=== PATIENT | male | born 1995 | race Hispanic/Latino ===

== ENCOUNTER 2016-09-11 20:09 | Emergency (ER) | payer SELFPAY ==
[2016-09-11 20:41] VITALS: BP 114/75; PULSE 105; RESP 20; O2SAT 97
--- NOTE | 2016-09-11 21:24 | ED.REPORT ---
HPI-General Illness Date of Service Sep 11, 2016 ED Provider: Dr. Harvinder Bernardo M.D. A 21 year old male presents to the ED via Police with alcohol intoxication of unknown onset. The patient arrives with a breathalyzer of .280 and climbing. He needs to be cleared for detox. History is difficult to obtain due to patient's intoxication. Nursing Notes Stated Complaint: DETOX Chief Complaint: Substance Abuse Nursing Notes Reviewed: Yes Allergies: Coded Allergies: No Known Allergies (Unverified , 09/11/16) General Time Seen by MD: 21:23 Chief Complaint Other (Alcohol intoxication) Unable to Obtain Hx: Patient condition, Intoxicated Arrived By: Police Sudden in Onset?: Yes Onset Occurred: Onset unknown Context of Onset: EtOH use Symptom Duration: Since onset Severity: Current: No pain currently Severity: Maximum: No pain Recent Healthcare: No recent doctor visit Past Medical History Past Medical History None reported Past Surgical History None reported Smoking History Unknown if Ever Smoker Ambulatory Status Independent Review of Systems Unable to Obtain ROS Patient condition, Intoxicated Physical Exam Vital Signs Vital Signs Date Time Temp Pulse Resp B/P Pulse Ox O2 Delivery O2 Flow Rate FiO2 09/11/16 20:41 36.8 105 20 114/75 97 Room Air Initial VS: Reviewed Head / Eyes: Atraumatic, Normocephalic ENT: Conjunctiva normal, No scleral icterus Respiratory: No respiratory distress General/Constitutional: No acute distress Alertness: Positive: Sleeping but arousable Appearance / Presentation: Positive: Intoxicated Re-Eval/Medical Decision Med Decision/Clinical Course 21-year-old presents grossly intoxicated. He was barely arousable initially after presenting ambulatory with the police. 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 Time of Eval: 23:50 Patient Status: Condition unchanged Re-Evaluation/Progress Note: Patient is sleeping soundly. Time of Eval: 00:15 Patient Status: Condition unchanged Re-Evaluation/Progress Note: Patient is sleeping soundly. Time of Eval: 00:50 Patient Status: Condition improved Re-Evaluation/Progress Note: Patient has left AMA Discharge & Departure Primary Impression: Alcohol intoxication Complication of substance-induced condition: uncomplicated Qualified Code: F10.120 - Alcohol abuse with intoxication, uncomplicated Disposition: AGAINST MEDICAL ADVICE ( eloped) Discharge Condition All VS Reviewed: Yes Condition: Improved Referrals: Count includes the [facility] (PCP) Suzie Attestation Portions of this note were transcribed by Yi [place]. I, Dr. Bernardo, personally performed the history, physical exam, and medical decision-making; I reviewed and confirmed the accuracy of the information in the transcribed note. Signed by: Suzie Moraes, 09/12/2016, 01:35 copies to: Count includes the [facility] Harvinder Bernardo MD Sep 11, 2016 21:24 YI [facility] Sep 12, 2016 01:23
== END 2016-09-12 01:00 | disposition left against medical advice (07) ==
LOC: SED 20:09
DX: F10.120 Alcohol abuse with intoxication, uncomplicated (principal)